=== PATIENT | male | born 1975 | race Caucasian/White ===

== ENCOUNTER 2017-12-03 18:54 | Emergency (ER) | payer BC ==
[~2017-12-03] VITALS: Ht 180.3 cm; Wt 86.2 kg
[~2017-12-03 18:54] MED LIST: ACHD5005 PO; AMIT50TA3; CEFD300C3 PO; CEPH500C PO; CYCL10TA9 PO; GABA-488; HYDR1TAB PO; HYDR25TA4; LOSA100T28; LOSA1TAB23 PO; LOSA50TA6 PO; METO25TA PO; NAPR550T PO; ONDA8TAB13 PO; PNT40TEC PO
--- OUTSIDE RECORDS SUMMARY | 2017-12-03 18:59 | XMS REPORT ---
Author Author EMRE BEY [facility] Address [address] [place] [address] Care Team Providers Care Tank Shop Supervisor Name Role Phone EMRE BEY Unavailable PROBLEMS Type Condition ICD9-CM Code [id number] Code Onset Dates Condition Status SNOMED Code Problem Primary insomnia F51.01 Active 8269295 Problem Acute left-sided low back pain with left-sided sciatica M54.42 Active 790229375 Problem Hypertension I10 Active 36631609 ALLERGIES No Information SOCIAL HISTORY Never Assessed PLAN OF CARE VITAL SIGNS MEDICATIONS Medication Instructions Dosage Frequency Start Date End Date Duration Status [place] 5-325 MG Orally every 6 hrs 1 tablet as needed 6h Oct, 28 days Active RESULTS No Results PROCEDURES No Known procedures IMMUNIZATIONS No Known Immunizations MEDICAL (GENERAL) HISTORY Type Description Date Medical History acid reflux Medical History hypertension Surgical History jaw surgery Hospitalization History hypertension
--- OUTSIDE RECORDS SUMMARY | 2017-12-03 18:59 | XMS REPORT ---
Author EMRE Wayne [facility] [employer] Address Unknown Phone Unavailable Care Team Providers Care Or Director Name Role Phone EMRE BEY CP Unavailable Allergies, Adverse Reactions, Alerts Substance Reaction Event Type Lisinopril 10 Mg Tablet cough Non Drug Allergy Problems Problem Type Condition Code Onset Dates Condition Status Assessment Gastroesophageal reflux disease with esophagitis K21.0 Active Problem Plantar fascial fibromatosis 728.71 Active Assessment Lumbar neuritis M54.16 Active Problem Lumbago 724.2 Active Problem Thoracic or lumbosacral neuritis or radiculitis, unspecified 724.4 Active Problem Hypertension I10 Active Problem Esophageal reflux 530.81 Active Problem Dehydration 276.51 Active Problem Abdominal or pelvic swelling, mass or lump, unspecified site 789.30 Active Problem Health examination of defined subpopulation V70.5 Active Medications Medication Code System Code Instructions Start Date End Date Status Dosage Amitriptyline HCl [facility] [address]-81 50 MG Orally Once a day Aug 01, 2015 1 tablet PredniSONE [facility] [address]-21 20 mg Orally Once a day March 19, 2016March 2 tablets [place] [facility] [address]-99 5-325 MG Orally every 6 hrs Aug 01, 2015 1 tablet as needed Hydrochlorothiazide [facility] [address]-41 25 MG Orally Once a day Oct 03, 2015 1 tablet Omeprazole [facility] [address]-44 20 MG Orally Once a day Oct 31, 2015 1 capsule Neurontin [facility] [address]-50 300 MG Orally Three times a day Aug 01, 2015 1 capsule Cozaar [facility] [address]-50 100 MG Orally Once a day Aug 01, 2015 1 tablet Procedures Procedure Coding System Code Date Office Visit, Est Pt., Level 3 CPT-4 65620 March 19, 2016 No Charge CPT-4 34960 March 19, 2016 Vital Signs Date/Time: March 19, 2016 Cardiac Monitoring Heart Rate 102 bpm Weight 207 lbs Height 70 in Blood Pressure Diastolic 80 mmHg Blood Pressure Systolic 136 mmHg Results No Known Results Summary Purpose eClinicalWorks Submission
--- OUTSIDE RECORDS SUMMARY | 2017-12-03 18:59 | XMS REPORT ---
Author Author EMRE BEY Organization [employer] Address Unknown Phone Unavailable Care Team Providers Care Welfare Administrator Name Role Phone EMRE BEY CP Unavailable Allergies No Known Allergies Problems Problem Type Condition Code Onset Dates Condition Status Problem Plantar fascial fibromatosis 728.71 Active Assessment Hypertension I10 Active Problem Lumbago 724.2 Active Problem Thoracic or lumbosacral neuritis or radiculitis, unspecified 724.4 Active Problem Hypertension I10 Active Problem Esophageal reflux 530.81 Active Problem Dehydration 276.51 Active Problem Abdominal or pelvic swelling, mass or lump, unspecified site 789.30 Active Problem Health examination of defined subpopulation V70.5 Active Medications Medication Code System Code Instructions Start Date End Date Status Dosage [facility] [address]-14 5-325 MG Orally every 6 hrs Aug 01, 2015 1 tablet as needed Results No Known Results Summary Purpose eClinicalWorks Submission
--- OUTSIDE RECORDS SUMMARY | 2017-12-03 18:59 | XMS REPORT ---
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 [place] [address] [place] [id number] [place] [address] Oct, [place] [address] [place] [id number] [place] [address] Oct, 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 ; Lumbar neuritis M54.16 and Acute non-recurrent maxillary sinusitis J01.00 [place] [address] [place] [address] Sep, Acute non-recurrent maxillary sinusitis J01.00 [place] [address] [place] [id number] [place] [address] Aug, Acute non-recurrent maxillary sinusitis J01.00 and Primary insomnia F51.01 [place] [address] [place] [id number] [place] [address] Jul, Primary insomnia F51.01 and Acute non-recurrent maxillary sinusitis J01.00 [place] [address] [place] [id number] [place] [address] Jun, Primary insomnia F51.01 and Acute non-recurrent maxillary sinusitis J01.00 [facility] [address] [place] [id number] [place] [address] May, Primary insomnia F51.01 [facility] [address] [place] [id number] [place] [address]- [address] Apr, Acute recurrent frontal sinusitis J01.11 and Primary insomnia F51.01 [facility] [address] [address] Apr, Acute non-recurrent maxillary sinusitis J01.00 [facility] [address] [address] Mar, [facility] [address] [address] Jan, Acute non-recurrent maxillary sinusitis J01.00 [facility] [address] [place] [id number] [place] [address] Jan, Acute seasonal allergic rhinitis, unspecified trigger J30.2 [facility] [address] [address] December, Acute non-recurrent maxillary sinusitis J01.00 [facility] [address] [place] [id number] [place] [address]- 7290 Dec, Acute non-recurrent maxillary sinusitis J01.00 ; Hypertension I10 ; Cervical neuritis M54.12 and Acute left-sided low back pain with left-sided sciatica M54.42 [facility] [address] [place] [id number] [place] [address]- [address] Oct, [facility] [address] [address] Oct, [facility] [address] [place] [id number] [place] [address] 80637- 9771 Sep, [facility] [address] [place] [address] Sep, [facility] [id number] [address] Aug, [facility] [id number] [address] Jun, [facility] [id number] [place] [address]- [address] Apr, [facility] [address] [place] [id number] [place] [address]- [address] Mar, [facility] [address] [place] [id number] [place] [address]- 1405 Mar, Lumbar neuritis M54.16 and Gastroesophageal reflux disease with esophagitis K21.0 [facility] [id number] [address] Jan, [facility] [id number] [place] [address]- [address] December, [facility] [id number] [address] Dec, Hypertension I10 [facility] [id number] [address] Oct, Hypertension I10 [facility] [id number] [address] Oct, Hypertension I10 [facility] [id number] [address] Oct, [facility] [id number] [address] Oct, Hypertension I10 [facility] [id number] [place] [address] Sep, [facility] [id number] [address] Sep, [facility] [id number] [address] Aug, Hypertension I10 [facility] [address] [place] [id number] [place] [address] Jul, Hypertension I10 ; Lumbago M54.5 ; Lumbar neuritis M54.16 ; Primary insomnia F51.01 and Mood disorder F39 [facility] [address] [place] [id number] [place] [address] 8[address]35- [address] Dec, [facility] [id number] [address] Dec, [facility] [address] [place] [id number] [place] [address]- [address] Apr, [facility] [address] [place] [id number] [place] [address]- 89[address] Apr, [facility] [id number] [place] [address]- [address] Apr, [facility] [id number] [place] [address] 15534- 8[address] Apr, [facility] [id number] [place] [address] 91584- 8358 Oct, [facility] [id number] [address] Oct, [facility] [id number] [place] [address] Oct, [facility] [id number] [place] [address] May, [facility] [id number] [address] Oct, [facility] [id number] [address] Sep, [facility] [address] [id number] [address] 15 Jul, 2012 [facility] [address] [id number] [address] 15 Jul, 2012 [facility] [address] [address] 14 May, 2012 [facility] [id number] [address] 13 May, 2012 [facility] [id number] [address] 10 May, 2012 [facility] [id number] [place] [address]- [address] 06 May, 2012 [facility] [id number] [address] 11 Mar, 2012 [facility] [id number] [place] [address] 10 Mar, 2012 [facility] [address] [place] [id number] [address] 09 Mar, 2012 [facility] [address] [address] [id number] [address] 10 Jan, 2011 IMMUNIZATIONS No Known Immunizations SOCIAL HISTORY Never Assessed REASON FOR VISIT Controlled Refill Request PLAN OF CARE VITAL SIGNS MEDICATIONS Medication Instructions Dosage Frequency Start Date End Date Duration Status [place] 5-325 MG Orally every 6 hrs 1 tablet as needed Jan, 28 days Active RESULTS No Results PROCEDURES No Known procedures INSTRUCTIONS MEDICATIONS ADMINISTERED No Known Medications MEDICAL (GENERAL) HISTORY Type Description Date Medical History acid reflux Medical History hypertension Surgical History jaw surgery Hospitalization History hypertension
--- OUTSIDE RECORDS SUMMARY | 2017-12-03 18:59 | XMS REPORT ---
Author Author EMRE BEY Organization [employer] Address Unknown Phone Unavailable Care Team Providers Care Roller Mill Tender Name Role Phone EMRE BEY CP Unavailable Allergies No Known Allergies Problems Problem Type Condition Code Onset Dates Condition Status Problem Plantar fascial fibromatosis 728.71 Active Problem Lumbago 724.2 Active Problem Thoracic or lumbosacral neuritis or radiculitis, unspecified 724.4 Active Problem Hypertension I10 Active Problem Esophageal reflux 530.81 Active Problem Dehydration 276.51 Active Problem Abdominal or pelvic swelling, mass or lump, unspecified site 789.30 Active Problem Health examination of defined subpopulation V70.5 Active Medications Medication Code System Code Instructions Start Date End Date Status Dosage [facility] [address]-67 5-325 MG Orally every 6 hrs Aug 01, 2015 1 tablet as needed Results No Known Results Summary Purpose eClinicalWorks Submission
--- OUTSIDE RECORDS SUMMARY | 2017-12-03 18:59 | XMS REPORT ---
Author Author EMRE BEY Organization [employer] Address Unknown Phone Unavailable Care Team Providers Care Tool And Die Maker Name Role Phone EMRE BEY CP Unavailable [...] Start Date End Date Status Dosage [facility] [address]-84 5-325 MG Orally every 6 hrs Aug 01, 2015 1 tablet as needed Results No Known Results Summary Purpose eClinicalWorks Submission
--- OUTSIDE RECORDS SUMMARY | 2017-12-03 19:00 | XMS REPORT ---
Author Author EMRE BEY [facility] Address [address] [place] [address] Care Team Providers Care Document Imaging Specialist Name Role Phone EMRE BEY Unavailable PROBLEMS Type Condition ICD9-CM Code [id number] Code Onset Dates Condition Status SNOMED Code Problem Primary insomnia F51.01 Active 2008080 Problem Acute left-sided low back pain with left-sided sciatica M54.42 Active 792860636 Problem Hypertension I10 Active 29356776 ALLERGIES No Information SOCIAL HISTORY Never Assessed PLAN OF CARE VITAL SIGNS MEDICATIONS Medication Instructions Dosage Frequency Start Date End Date Duration Status [place] 5-325 MG Orally every 6 hrs 1 tablet as needed 6h December, 28 days Active RESULTS No Results PROCEDURES No Known procedures IMMUNIZATIONS No Known Immunizations MEDICAL (GENERAL) HISTORY Type Description Date Medical History acid reflux Medical History hypertension Surgical History jaw surgery Hospitalization History hypertension
--- OUTSIDE RECORDS SUMMARY | 2017-12-03 19:00 | XMS REPORT ---
Author Author EMRE BEY Organization [employer] Address Unknown Phone Unavailable Care Team Providers Care Fur Puller Name Role Phone EMRE BEY CP Unavailable [...] Instructions Start Date End Date Status Dosage [facility] [address]-10 5-325 MG Orally every 6 hrs Aug 01, 2015 1 tablet as needed Results No Known Results Summary Purpose eClinicalWorks Submission
--- OUTSIDE RECORDS SUMMARY | 2017-12-03 19:00 | XMS REPORT ---
Author Author EMRE BEY [facility] Address [address] [place] [address] Care Team Providers Care Record Label Internship Name Role Phone EMRE BEY Unavailable PROBLEMS Type Condition ICD9-CM Code [id number] Code Onset Dates Condition Status SNOMED Code Problem Primary insomnia F51.01 Active 0453684 Problem Acute left-sided low back pain with left-sided sciatica M54.42 Active 899140062 Problem Hypertension I10 Active 05564972 ALLERGIES Unknown Allergies SOCIAL HISTORY No smoking Hx information available PLAN OF CARE VITAL SIGNS MEDICATIONS Medication Instructions Dosage Frequency Start Date End Date Duration Status [place] 5-325 MG Orally every 6 hrs 1 tablet as needed 6h Sep, 28 days Active RESULTS No Results PROCEDURES No Known procedures IMMUNIZATIONS No Known Immunizations
--- OUTSIDE RECORDS SUMMARY | 2017-12-03 19:00 | XMS REPORT ---
Author Author EMRE BEY [facility] Address [address] [place] [address] Care Team Providers Care Planishing Press Operator Name Role Phone EMRE BEY Unavailable PROBLEMS Type Condition ICD9-CM Code UEX62-VW Code Onset Dates Condition Status SNOMED Code Problem Primary insomnia F51.01 Active 5048930 Problem Acute left-sided low back pain with left-sided sciatica M54.42 Active 164607128 Problem Hypertension I10 Active 52127286 ALLERGIES No Information SOCIAL HISTORY Never Assessed PLAN OF CARE VITAL SIGNS MEDICATIONS Medication Instructions Dosage Frequency Start Date End Date Duration Status [place] 5-325 MG Orally every 6 hrs 1 tablet as needed 6h Oct, 28 days Active RESULTS No Results PROCEDURES No Known procedures IMMUNIZATIONS No Known Immunizations MEDICAL (GENERAL) HISTORY Type Description Date Medical History acid reflux Medical History hypertension Surgical History jaw surgery Hospitalization History hypertension
--- OUTSIDE RECORDS SUMMARY | 2017-12-03 19:00 | XMS REPORT ---
Author Author EMRE BEY Organization [employer] Address Unknown Phone Unavailable Care Team Providers Care Structural Iron Worker Name Role Phone EMRE BEY CP Unavailable [...] Start Date End Date Status Dosage [facility] [address]-24 5-325 MG Orally every 6 hrs Aug 01, 2015 1 tablet as needed Results No Known Results Summary Purpose eClinicalWorks Submission
--- OUTSIDE RECORDS SUMMARY | 2017-12-03 19:00 | XMS REPORT ---
Author Author EMRE BEY [facility] Address [address] [place] [address] Care Team Providers Care Insurance Sales Manager Name Role Phone EMRE BEY Unavailable PROBLEMS Type Condition ICD9-CM Code [id number] Code Onset Dates Condition Status SNOMED Code Problem Primary insomnia F51.01 Active 1038869 Problem Acute left-sided low back pain with left-sided sciatica M54.42 Active 312746961 Problem Hypertension I10 Active 80770278 ALLERGIES No Known Allergies SOCIAL HISTORY No smoking Hx information available PLAN OF CARE VITAL SIGNS MEDICATIONS No Known Medications RESULTS No Results PROCEDURES No Known procedures IMMUNIZATIONS No Known Immunizations
--- OUTSIDE RECORDS SUMMARY | 2017-12-03 19:00 | XMS REPORT ---
Author EMRE Wayne Organization [employer] Address Unknown Phone Unavailable Care Team Providers Care Sap Basis Name Role Phone EMRE BEY CP Unavailable [...] Instructions Start Date End Date Status Dosage Pantoprazole Sodium [facility] [address]-84 40 MG Orally Once a day Oct 03, 2015 1 tablet Neurontin [facility] [address]-23 300 MG Orally Three times a day Aug 01, 2015 1 capsule [place] [facility] [address]-04 5-325 MG Orally every 6 hrs Aug 01, 2015 1 tablet as needed Hydrochlorothiazide [facility] [address]-29 25 MG Orally Once a day Oct 03, 2015 1 tablet Cozaar [facility] [address]-67 100 MG Orally Once a day Aug 01, 2015 1 tablet Amitriptyline HCl [facility] [address]-91 25 MG Orally Once a day Aug 01, 2015 1 tablet Procedures Procedure Coding System Code Date Office Visit, Est Pt., Level 3 CPT-4 79802 Oct 03, 2015 Vital Signs Date/Time: Oct 03, 2015 Temperature 98.3 F Weight 210.9 lbs Height 70 in BMI 30.26 Index Blood Pressure Diastolic 92 mmHg Blood Pressure Systolic 152 mmHg Cardiac Monitoring Heart Rate 100 bpm Results No Known Results Summary Purpose eClinicalWorks Submission
--- OUTSIDE RECORDS SUMMARY | 2017-12-03 19:00 | XMS REPORT ---
Author EMRE Wayne Organization [employer] Address Unknown Phone Unavailable Care Team Providers Care Billet Bed Operator Name Role Phone EMRE BEY CP Unavailable [...] Instructions Start Date End Date Status Dosage Omeprazole [facility] [address]-41 20 MG Orally Once a day Aug 01, 2015 1 tablet Amitriptyline HCl [facility] [address]-47 25 MG Orally Once a day Aug 01, 2015 1 tablet Cozaar [facility] [address]-15 100 MG Orally Once a day Aug 01, 2015 1 tablet Results No Known Results Summary Purpose eClinicalWorks Submission
--- OUTSIDE RECORDS SUMMARY | 2017-12-03 19:00 | XMS REPORT ---
Author EMRE Wayne Organization [employer] Address Unknown Phone Unavailable Care Team Providers Care Courtesy Bus Driver Name Role Phone EMRE BEY CP Unavailable Allergies, Adverse Reactions, Alerts Substance Reaction Event Type Lisinopril 10 Mg Tablet cough Non Drug Allergy Problems Problem Type Condition Code Onset Dates Condition Status Assessment Lumbago M54.5 Active Problem Plantar fascial fibromatosis 728.71 Active Assessment Hypertension I10 Active Problem Lumbago 724.2 Active Problem Thoracic or lumbosacral neuritis or radiculitis, unspecified 724.4 Active Problem Hypertension I10 Active Problem Esophageal reflux 530.81 Active Problem Dehydration 276.51 Active Problem Abdominal or pelvic swelling, mass or lump, unspecified site 789.30 Active Problem Health examination of defined subpopulation V70.5 Active Assessment Mood disorder F39 Active Assessment Primary insomnia F51.01 Active Assessment Lumbar neuritis M54.16 Active Medications Medication Code System Code Instructions Start Date End Date Status Dosage Amitriptyline HCl [facility] [address]-27 25 MG Orally Once a day Aug 01, 2015 1 tablet Cozaar [facility] [address]-48 100 MG Orally Once a day Aug 01, 2015 1 tablet [place] [facility] [address]-31 5-325 MG Orally every 6 hrs Aug 01, 2015 1 tablet as needed Omeprazole [facility] [address]-28 20 MG Orally Once a day Aug 01, 2015 1 tablet PredniSONE [facility] [address]-89 20 MG Orally Twice a day Aug 01, 2015Aug 1 tablet with food or milk Neurontin [facility] [address]-48 300 MG Orally Three times a day Aug 01, 2015 1 capsule Procedures Procedure Coding System Code Date Office Visit, Est Pt., Level 3 CPT-4 26439 Aug 01, 2015 Vital Signs Date/Time: Aug 01, 2015 Temperature 97.6 F Weight 208.8 lbs Height 70 in BMI 29.96 Index Blood Pressure Diastolic 92 mmHg Blood Pressure Systolic 150 mmHg Cardiac Monitoring Heart Rate 96 bpm Results No Known Results Summary Purpose eClinicalWorks Submission
--- OUTSIDE RECORDS SUMMARY | 2017-12-03 19:00 | XMS REPORT ---
Author Author EMRE BEY Organization [employer] Address Unknown Phone Unavailable Care Team Providers Care Lead Supply Worker Name Role Phone EMRE BEY CP [...] Dosage [facility] [address]-94 5-325 MG Orally every 6 hrs Aug 01, 2015 1 tablet as needed Results No Known Results Summary Purpose eClinicalWorks Submission
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
[2017-12-03] MEDS ORDERED: FLUORESCEIN (FLUOR-I-STRIPS) 1 MG STRP OU ONE (20:15)
[2017-12-03] MEDS ORDERED: TETRACAINE 0.5% OPHTH SOLN 4 ML BTL (SINGLE DOSE ONLY) OU ONE (20:15)
[2017-12-03] MEDS ORDERED: CIPR5DRO OP (20:16)
[2017-12-03 20:30] VITALS: BP 132/94
== END 2017-12-03 20:30 | disposition home or self-care (01) ==
LOC: EDUNIT# 18:54 → ER 18:56
DX: T15.91XA Foreign body on external eye, part unspecified, right eye, initial encounter (principal); I10 Essential (primary) hypertension; Z87.828 Personal history of other (healed) physical injury and trauma
CPT/HCPCS: 99282